=== PATIENT | female | born 1990 | race African-American/Black ===

== ENCOUNTER 2018-07-13 13:15 | Emergency (ER) | payer OTHER ==
[~2018-07-13] VITALS: Ht 170.2 cm; Wt 70.3 kg
[2018-07-13] MEDS ORDERED: NKM (13:28)
[2018-07-13] MEDS ORDERED: Metoclopramide 10mg/2ml Inj IVP ONE (13:45)
[2018-07-13] MEDS ORDERED: Ketorolac 30mg Inj IM ONE (13:45)
[2018-07-13 14:00] VITALS: BP 132/65
--- NOTE | 2018-07-13 14:00 | NUR ---
ED Nurse Note: headache started yesterday and N/V today, mom of her friend reported she was drinking alcohol last night. pt complains of migraine. pt hooked on monitor with vs stable. pt is complaining of 10/10 pain. seen by maru malik. will continue to monitor.
--- NOTE | 2018-07-13 14:22 | NUR ---
ED Nurse Note: pt unable to give urine sample at the moment.
[2018-07-13 14:29] LABS: BASOPHILS % (AUTO) 0.8 % (0.0-2.0); EOSINOPHILS % (AUTO) 0.1 % (0.0-3.0); HEMATOCRIT 41.1 % (37.0-47.0); LYMPHOCYTES % (AUTO) 17.4 % (20.0-45.0); MEAN CORPUSCULAR VOLUME 88 FL (80-99); MONOCYTES % (AUTO) 3.3 % (1.0-10.0); NEUTROPHILS % (AUTO) 78.4 % (45.0-75.0); PLATELET COUNT 207 K/UL (150-450); RED BLOOD COUNT 4.66 M/UL (4.20-5.40); RED CELL DISTRIBUTION WIDTH 10.7 % (11.6-14.8); WHITE BLOOD COUNT 5.9 K/UL (4.8-10.8)
[2018-07-13 14:35] LABS: ANION GAP 11 mmol/L (5-15); BLOOD UREA NITROGEN 11 mg/dL (7-18); CALCIUM 9.7 MG/DL (8.5-10.1); CARBON DIOXIDE 26 MMOL/L (21-32); CHLORIDE 102 MMOL/L (98-107); CREATININE 0.9 MG/DL (0.55-1.30); POTASSIUM 3.4 MMOL/L (3.5-5.1); SODIUM 139 MMOL/L (136-145)
[2018-07-13 14:54] LABS: ALANINE AMINOTRANSFERASE 27 U/L (12-78); ALBUMIN 3.8 G/DL (3.4-5.0); ALBUMIN/GLOBULIN RATIO 0.9 (1.0-2.7); ALKALINE PHOSPHATASE 82 U/L (46-116); ASPARTATE AMINO TRANSFERASE 21 U/L (15-37); BILIRUBIN,TOTAL 0.4 MG/DL (0.2-1.0); CREATINE KINASE 132 U/L (26-308)
[2018-07-13 15:27] LABS: APPEARANCE,URINE CLEAR; BILIRUBIN, URINE NEGATIVE (NEGATIVE); GLUCOSE, URINE (UA) NEGATIVE (NEGATIVE); KETONES,URINE 4+ (NEGATIVE); LEUKOCYTE ESTERASE ,URINE 1+ (NEGATIVE); NITRITE,URINE NEGATIVE (NEGATIVE); PH,URINE 9 (4.5-8.0); PROTEIN,URINE 2+ (NEGATIVE); UROBILINOGEN,URINE 1 MG/DL (0.0-1.0)
[2018-07-13 15:29] LABS: COLOR,URINE YELLOW
[2018-07-13] MEDS ORDERED: ZOFRAN4 M3 ORAL (16:30)
[2018-07-13] MEDS ORDERED: EXCEDRIN MIGRA1 EAC1 PO (16:30)
--- NOTE | 2018-07-13 16:30 | Emergency Room Report ---
History of Present Illness General Chief Complaint: Vomiting Source: Friend Present Illness HPI 27-year-old female with history of migraine headache currently not on that the treatment of primary care decision here complaining of 10 out of 10 headache, nausea and vomiting times 1 day. Patient is here with her friends mother who the mother reports that her daughter was with patient yesterday and they had food no alcohol and patient started feeling not nauseated and headache afterwards. Patient's friend is put on the phone and reports the same thing. Patient reports her last menstrual period was 1 month ago denies . Has abdominal pain, vaginal bleeding or spotting. Denies neck stiffness, URI symptoms, chest pain, palpitation. However reports that it is normal with her migraine headaches. Does not recall medication she takes for migraine headache. Denies drug use other than marijuana. Patient is in mild distress, lethargic, however responsive to questions. His neurological deficits. Not taking any medication for pain Allergies: Coded Allergies: SULFUR DIOXIDE (Verified Allergy, Unknown, 07/13/18) Patient History Past Medical History: see triage record - migraine CORREA Past Surgical History: none Pertinent Family History: none Social History: Reports: drug use - marijuana Now: No Immunizations: UTD Reviewed Nursing Documentation: PMH: Agreed; PSxH: Agreed Nursing Documentation-PMH Past Medical History: No Stated History Review of Systems All Other Systems: negative except mentioned in HPI Physical Exam Vital Signs Date Time Temp Pulse Resp B/P (MAP) Pulse Ox O2 Delivery O2 Flow Rate FiO2 07/13/18 13:25 97.7 63 18 132/65 98 Room Air Sp02 EP Interpretation: reviewed, normal General Appearance: alert, GCS 15, non-toxic, mild distress Head: normocephalic, atraumatic Eyes: bilateral eye normal inspection, bilateral eye PERRL, bilateral eye photophobia ENT: normal ENT inspection, hearing grossly normal, normal pharynx, no angioedema, normal voice Neck: normal inspection, full range of motion, supple, thyroid normal, no meningismus, no bony tend Respiratory: normal inspection, chest non-tender, lungs clear, no rhonchi, no respiratory distress, no retraction, no wheezing Cardiovascular #1: normal inspection, regular rate, rhythm, no edema, no murmur , normal capillary refill Cardiovascular #2: 2+ radial (R), 2+ radial (L) Gastrointestinal: normal inspection, normal bowel sounds, non tender, soft, no mass, no organomegaly, no bruit Rectal: deferred Genitourinary: no CVA tenderness Musculoskeletal: normal inspection, back normal Neurologic: normal inspection, alert, oriented x3, responsive, hosiery pairer III-XII nml as tested Psychiatric: normal inspection, judgement/insight normal, memory normal Skin: normal inspection, normal color, no rash, warm/dry Lymphatic: normal inspection, no adenopathy Medical Decision Making PA Attestation Diagnosis and treatment plans were reviewed and discussed with my supervising physician Dr. Liang Diagnostic Impression: Primary Impression: Dehydration Additional Impression: Migraine ER Course 27-year-old female with history of migraine headache currently not on that the treatment of primary care decision here complaining of 10 out of 10 headache, nausea and vomiting times 1 day. Patient is here with her friends mother who the mother reports that her daughter was with patient yesterday and they had food no alcohol and patient started feeling not nauseated and headache afterwards. Patient's friend is put on the phone and reports the same thing. Patient reports her last menstrual period was 1 month ago denies . Has abdominal pain, vaginal bleeding or spotting. Denies neck stiffness, URI symptoms, chest pain, palpitation. However reports that it is normal with her migraine headaches. Does not recall medication she takes for migraine headache. Denies drug use other than marijuana. Patient is in mild distress, lethargic, however responsive to questions. His neurological deficits. Not taking any medication for pain Ddx considered but are not limited to dehydration, migraine CORREA, ectopic , drug abuse, meningitis Vital signs: are WNL, pt. is afebrile H&PE are most consistent with dehydration, migraine CORREA ORDERS: CBC, CMP, lipase, UA, tox screen, ETOH, reglan, toradol potassium cl, zofran, excederine, ED INTERVENTIONS: reglan, toradol, NS bolus, KCL DISCHARGE: At this time pt. is stable for d/c to home. Will provide printed patient care instructions, and any necessary prescriptions. Care plan and follow up instructions have been discussed with the patient prior to discharge. With primary care provider for better management of migraine headache possible start of sumatriptan needed KCl: 3.4, 4+ ketones UA Last Vital Signs Date Time Temp Pulse Resp B/P (MAP) Pulse Ox O2 Delivery O2 Flow Rate FiO2 4/7/19 13:25 97.7 63 18 132/65 98 Room Air Disposition: HOME, SELF-CARE Condition: Stable Referrals: NOT CHOSEN IPA/MD,REFERRING (PCP) Patient Instructions: Dehydration, Adult, [id number], Migraine Headache, Easy -to-Read Additional Instructions: Follow with primary care provider for further workup he also needs better management of her migraine headache possible sumatriptan to be started by primary care provider. Return to the emergency room with any worsening symptoms or any new symptoms Vikki Ho Jul 13, 2018 16:30
[2018-07-13 17:10] VITALS: BP 107/78
--- NOTE | 2018-07-13 17:10 | NUR ---
ER DISCHARGE NOTE: Patient is cleared to be discharged per ERMD, pt is aox4, on room air, with stable vital signs. pt was given dc and prescription instructions, pt was able to verbalize understanding, pt id band and iv site removed without complications. pt is able to ambulate with steady gait. pt took all belongings.
== END 2018-07-13 17:10 | disposition home or self-care (01) ==
LOC: EMR 14:05
DX: G43.909 Migraine, unspecified, not intractable, without status migrainosus (principal); E86.0 Dehydration; Z88.8 Allergy status to other drugs, medicaments and biological substances; R11.2 Nausea with vomiting, unspecified
CPT/HCPCS: 36415; 80053; 80307; 81001; 81025; 82550; 83690; 85025; 87086; 96361; 96365; 96372; 96375; 99284; G0480; J1885; J2765; J3480; 80329

== ENCOUNTER 2020-01-02 14:06 | Emergency (ER) | payer OTHER ==
[~2020-01-02] VITALS: Ht 167.6 cm; Wt 61.2 kg
[~2020-01-02 14:06] MED LIST: EXCEDRIN MIGRA1 EAC1 PO; NKM; ZOFRAN4 M3 ORAL
--- NOTE | 2020-01-02 14:31 | NUR ---
ED Nurse Note: Pt walked into ED for injury L 3rd digit. Pt fell and injured finger with skin tear. No drainage. Pt is alert and orientedx4, ambulatory. Pt has been seen by FLO.
[2020-01-02 14:33] VITALS: BP 104/70
[2020-01-02] MEDS ORDERED: BACITRACIN ZIN1 EACH TOPIC (14:35)
--- NOTE | 2020-01-02 14:38 | Emergency Room Report ---
History of Present Illness General Chief Complaint: Upper Extremity Injury Source: Patient Present Illness HPI 29-year-old female presented for left middle finger injury. Patient had recent injury to her left middle finger. Patient had no other injuries. Had recent fall. Patient reports having tetanus vaccine up-to-date. Denies any decreased range of motion. Injury occurred just prior to arrival. Allergies: Coded Allergies: SULFUR DIOXIDE (Verified Allergy, Unknown, 07/13/18) COVID-19 Screening Contact w/high risk pt: No Experienced COVID-19 symptoms?: No COVID-19 Testing performed SUPERVISOR NET MAKING: No Patient History Past Medical History: see triage record Last Menstrual Period: 12/30 Reviewed Nursing Documentation: PMH: Agreed; PSxH: Agreed Nursing Documentation-PMH Past Medical History: No Stated History Review of Systems All Other Systems: negative except mentioned in HPI Physical Exam Vital Signs Date Time Temp Pulse Resp B/P (MAP) Pulse Ox O2 Delivery O2 Flow Rate FiO2 01/02/20 14:23 98.2 70 16 99/65 (76) 99 Room Air General Appearance: well appearing, no apparent distress, alert, GCS 15 Head: normocephalic, atraumatic ENT: hearing grossly normal, normal voice Neck: full range of motion, supple Respiratory: chest non-tender, lungs clear, no respiratory distress, speaking full sentences Cardiovascular #1: normal inspection Gastrointestinal: normal inspection, soft Musculoskeletal: no calf tenderness Neurologic: alert, motor strength/tone normal, mail order sorter III-XII nml as tested, oriented x3, normal gait Psychiatric: mood/affect normal Skin: no rash, other - Small skin avulsion less than half a centimeter elliptical to the left middle finger, no joint involvement. Medical Decision Making Diagnostic Impression: Primary Impression: Skin avulsion ER Course Patient presented for left hand injury. Differential diagnosis include was not limited to skin avulsion, fracture, contusion among others. Patient's injury appears to be superficial does not appear to be any bony tenderness and preserve range of motion. Patient does not appear to require x-ray imaging at this time. Patient's tetanus is up-to-date. Wound was cleansed and patient's wound was dressed with antibiotic ointment. Patient was advised to have wound rechecked with primary care physician. She is to return if worse. The patient is advised to follow up with primary care doctor in 2-3 days. Patient is advised to return if any worsening condition or if any changes in status that are concerning. This report is dictated with [employer] automated process operator software which may occasionally lead to discrepancies related to use of this software. Last Vital Signs Date Time Temp Pulse Resp B/P (MAP) Pulse Ox O2 Delivery O2 Flow Rate FiO2 01/02/20 14:23 98.2 70 16 99/65 (76) 99 Room Air Status: improved Disposition: HOME, SELF-CARE Condition: Stable Scripts Bacitracin Zinc* (BACITRACIN ZINC*) 1 Each Packet 1 APPLIC TOPIC THREE TIMES A DAY, #30 PACKET Prov: Josesito Liang MD 01/02/20 Patient Instructions: Wound Care Additional Instructions: Change dressing daily. Keep wound covered. Follow up with your doctor for wound recheck in 2-3 days. Josesito Liang MD Jan 02, 2020 14:38
[2020-01-02] MEDS ORDERED: Bacitracin Oint UD TOPIC ONE (14:45)
--- NOTE | 2020-01-02 14:46 | NUR ---
ER DISCHARGE NOTE: Patient is cleared to be discharged per ERMD, pt is aox4, on room air, with stable vital signs. pt was given dc and prescription instructions, pt was able to verbalize understanding, pt id band removed. pt is able to ambulate with steady gait. pt took all belongings. Pt instructed regarding wound care.
[2020-01-02 14:47] VITALS: BP 108/73
== END 2020-01-02 17:38 | disposition home or self-care (01) ==
LOC: EMR 14:51
DX: S61.203A Unspecified open wound of left middle finger without damage to nail, initial encounter (principal); X58.XXXA Exposure to other specified factors, initial encounter; Y92.9 Unspecified place or not applicable
CPT/HCPCS: 99282